=== PATIENT | male | born 1980 | race Caucasian/White ===

== ENCOUNTER 2018-10-17 17:51 | Emergency (ER) | payer SELFPAY ==
[~2018-10-17] VITALS: Ht 167.6 cm; Wt 83.0 kg
[2018-10-17 18:24] VITALS: Ht 167.6 cm; Wt 83.0 kg
[2018-10-17 20:59] VITALS: BP 133/78
== END 2018-10-17 20:59 | disposition home or self-care (01) ==
LOC: ED 17:51
DX: S82.892A Other fracture of left lower leg, initial encounter for closed fracture (principal); Z90.89 Acquired absence of other organs; W22.8XXA Striking against or struck by other objects, initial encounter; Y93.39 Activity, other involving climbing, rappelling and jumping off; Y92.89 Other specified places as the place of occurrence of the external cause; Y99.8 Other external cause status
CPT/HCPCS: J1885